=== PATIENT | male | born 1960 | race Caucasian/White ===

== ENCOUNTER → 2022-08-20 11:13 | Outpatient (BNVA) | payer OTHER, SELFPAY | PROVIDERS: PCP Registered Nurse; Visit Provider Registered Nurse | DX: R05.9 Cough, unspecified (principal) | CPT/HCPCS: 87400; 87426 ==

== ENCOUNTER → 2023-04-21 09:08 | Outpatient (BNVA) | payer OTHER, SELFPAY | PROVIDERS: PCP Registered Nurse; Visit Provider Registered Nurse | DX: Z00.00 Encounter for general adult medical examination without abnormal findings (principal); Z87.898 Personal history of other specified conditions; Z13.1 Encounter for screening for diabetes mellitus; Z12.5 Encounter for screening for malignant neoplasm of prostate; R09.81 Nasal congestion; I10 Essential (primary) hypertension; J30.9 Allergic rhinitis, unspecified; Z71.85 Encounter for immunization safety counseling; E66.9 Obesity, unspecified; Z68.32 Body mass index [BMI] 32.0-32.9, adult | CPT/HCPCS: 80053; 80061; 83036; 84443; 85025; G0103 ==

== ENCOUNTER 2023-11-10 14:58 | Outpatient (CLI) | payer OTHER, SELFPAY ==
--- NOTE | 2023-11-10 16:00 | CT_ITS ---
WS: [id number] CT ABDOMEN AND PELVIS WITH CONTRAST HISTORY: ventral hernia TECHNIQUE: Imaging performed of the abdomen and pelvis with IV contrast. Single phase imaging of the abdomen. Coronal and sagittal reformats are submitted. All CT scans at [facility] use at [address] one of these dose optimization techniques: automated exposure control; mA and/or kV adjustment per patient size (includes targeted exams where dose is matched to clinical indication); or iterative re construction. IV CONTRAST: Omnipaque 350; 100 mL IV. Oral contrast: Yes. DLP: 605.62 mGy.cm COMPARISON: None available. Lower thorax: Lung bases are clear. Heart is normal size. Small hiatal hernia. Distal esophagus conta ins a small amount of oral contrast. Liver/biliary system: Liver is normal size. There is several calcified granulomata throughout the elizabeth er. No mass identified. Normal portal vein. Gallbladder: Normal. No gallstones or wall thickening. No pericholecystic fluid. Pancreas: Normal size pancreas and pancreatic duct. No adjacent inflammation. Spleen: Normal size spleen. No mass or infarct. Adrenal glands: Normal. Right kidney: Normal. Left kidney: Normal. Aorta: Mild atherosclerosis with no aneurysm. Lymphadenopathy: None. Free fluid: None. GI tract: Marked distention of the stomach with food products and oral contrast. No small bowel obstr uction. There is moderate fecal retention and constipation with tortuosity of the colon. Normal appen pau. No colon obstruction. Abdominal wall: Thinning of the midline linea alba. There is a focal defect with an orifice of 2.0 cm . Herniated omental fat only extending through the orifice. Amount of herniated omental fat is 2.3 x 3.2 cm. This hernia is at the level of the umbilicus. No additional hernia identified. Pelvis: Prostate gland is moderately enlarged with central calcifications encroaching into the urinar y bladder. Prostate measures 5.3 x 5.1 x 6.9 cm. Bones: Mild straightening of the normal lumbar lordosis. No destructive bone lesion. IMPRESSION: 1. Ventral abdominal wall umbilical hernia. Hernia orifice measures 2.0 cm. Omental herniation only. Hernia does not contain GI tract. 2. Diffuse moderate constipation. 3. Normal appendix. 4. Small hiatal hernia.
[2023-11-10] MEDS: iohexol 350 mg/mL 500 mL Btl (per mL) PO (16:19)
[2023-11-10 16:27] LABS: Blood Urea Nitrogen 12 mg/dL (8-23); Glomerular Filtration Rate 85.5 mL/min (90-130)
[2023-11-10] MEDS: iohexol 350 mg/mL 500 mL Btl (per mL) IV (16:35)
== END 2023-11-10 14:59 | disposition home or self-care (01) ==
PROVIDERS: PCP Registered Nurse; Visit Provider Surgery
DX: K43.9 Ventral hernia without obstruction or gangrene (principal); K59.00 Constipation, unspecified; K44.9 Diaphragmatic hernia without obstruction or gangrene
CPT/HCPCS: 74177; 82565; 84520; Q9967

== ENCOUNTER 2023-12-05 07:13 | Day surgery (SDC) | payer OTHER, SELFPAY ==
[2023-12-05] VITALS (13 sets, daily range): BP systolic 139–171; BP diastolic 71–100; PULSE 78–102; RESP 10–21; TEMP 36.2–36.8; O2SAT 91–98; BMI 30.7
--- NOTE | 2023-12-05 06:24 | W.PM.OPSFHP ---
Same Day Surgery H&P Indication for Procedure/HPI DATE OF PROCEDURE: December 05, 2023 CHIEF COMPLAINT/INDICATIONFOR SURGICAL PROCEDURE: ventral hernia PREOP DIAGNOSIS: ventral hernia PLANNED PROCEDURE: Operation Date: 12/05/23 08:55 Proposed Procedures p 22064 lap ventral hernia repair with mesh K43.9(Not Applicable) - Gab Walls MD Medications/Allergies* Home Medications Medication Instructions Recorded Confirmed Type amlodipine 5 mg tablet 5 mg PO DAILY 12/02/23 12/02/23 History hydrochlorothiazide 25 mg tablet 25 mg PO DAILY 12/02/23 12/02/23 History ibuprofen 600 mg tablet 600 mg PO QID PRN Pain 12/02/23 12/02/23 History loratadine 10 mg tablet 10 mg PO DAILY 12/02/23 12/02/23 History ramipril 10 mg capsule 10 mg PO BID 12/02/23 12/02/23 History Allergies/Adverse Reactions Allergy/AdvReac Type Severity Reaction Status Date / Time No Known Allergies Allergy Verified 12/02/23 10:15 Pertinent History/Comorbid Conditions* Medical History (Updated 11/15/23 @ 08:53 by Gab Walls MD) Hypertension Sinus congestion Allergic rhinitis due to allergen Surgical History (Updated 04/21/23 @ 11:54 by EDDIE Swartz) History of hernia repair Family History (Updated 04/22/22 @ 09:50 by Leyla Pillai LPN) Diabetes Cancer Hypertension Social History Smoking and tobacco/nicotine status: never used tobacco/nicotine Alcohol intake: never Substance/Drug Use: never Adopted: No Caregiver/support person: No Lives independently: No Household members: spouse Marital status: service: Yes status: Retired branch: [employer] Assignments: Outside [facility] ([employer]) Known or Potential Exposure: None Current occupational status: employed Sexually active: Yes Do you think of yourself as: Straight/Heterosexual Current gender identity: Male Pertinent Exam Findings alert and clear to auscultation bilaterally Recommendations Surgery/Procedure today Coding Level of Care Code Acute Code for Chg Fwd
[2023-12-05] MEDS: sodium chloride 0.9% 1,000 ML 30 ML IV (08:11)
[2023-12-05 08:37] LABS: Anion Gap 12.3 (5-19); Blood Urea Nitrogen 15 mg/dL (8-23); Calcium 9.4 mg/dL (8.5-10.5); Carbon Dioxide 27 mmol/L (22-29); Chloride 103 mmol/L (98-107); Glucose 106 mg/dL (65-115); Osmolality Calculated 289 mOsm/kg (285-295); Potassium 3.3 mmol/L (3.5-5.1); Sodium 139 mmol/L (136-145)
[2023-12-05] MEDS: ceFAZolin 2,000 MG in sodium chloride 0.9% (plus) 50 ML 100 MG IV (09:21)
[2023-12-05] MEDS: BUPivacaine 0.25% INJ 10 mL INJECTION (10:01)
[2023-12-05] MEDS: lidocaine-epi 1% 20 mL INJ INJECTION (10:01)
--- NOTE | 2023-12-05 10:40 | P.ANESASSM_ITS ---
Pre-Anesthetic Assessment Height/Weight: Height 1.78 m Weight 97 kg Temp Pulse Resp BP Pulse Ox O2 Del Method 98.3 F 78 16 160/84 98 Room Air 12/05/23 07:34 12/05/23 07:34 12/05/23 07:34 12/05/23 07:34 12/05/23 07:34 12/05/23 07:36 Preop Diagnosis: ventral hernia Operation Date: 12/05/23 08:55 Proposed Procedures p 04858 lap ventral hernia repair with mesh K43.9(Not Applicable) - Gab Walls MD Familial anesthetic complications: none Was Beta Samir taken within 24 hours: N/A Was Clonidine taken within 24 hours: N/A Last intake: Intake Last Liquid Date 12/04/23 Last Liquid Time 20:00 Last Solid Date 12/04/23 Last Solid Time 16:30 Social No alcohol and No tobacco Exam alert, oriented x 3, clear to auscultation bilaterally and regular rate & rhythm Airway Submandibular: within normal limits Cervical ROM: within normal limits Mallampati: Class II Dentition: chipped CV/HEM Hypertension Anesthetic Plan ASA status: 2 Anesthesia: General Medications/Allergies Home Medications Medication Instructions Recorded Confirmed Last Taken Type diphenhydramine HCl 25 mg tablet 25 mg PO .hs PRN allergy symptoms 04/10/22 12/02/23 12/01/23 Rx (Allergy Relief (diphenhydramine)) #30 tabs fluticasone propionate 50 2 spray intranasal BID PRN nasal 04/21/23 12/02/23 1 Month Ago Rx mcg/actuation nasal congestion #16 grams ~11/01/23 spray,suspension amlodipine 5 mg tablet 5 mg PO DAILY 12/02/23 12/02/23 12/05/23 History hydrochlorothiazide 25 mg tablet 25 mg PO DAILY 12/02/23 12/02/23 12/05/23 History ibuprofen 600 mg tablet 600 mg PO QID PRN Pain 12/02/23 12/02/23 11/25/23 History loratadine 10 mg tablet 10 mg PO DAILY 12/02/23 12/02/23 11/30/23 History ramipril 10 mg capsule 10 mg PO BID 12/02/23 12/02/23 12/04/23 History Allergies Allergy/AdvReac Type Severity Reaction Status Date / Time No Known Allergies Allergy Verified 12/02/23 10:15 Current Medications Generic Name Dose Route Start Last Admin Trade Name Heide PRN Reason Stop Dose Admin Sodium Chloride 1,000 mls @ 30 mls/hr 12/05/23 07:30 12/05/23 10:11 Sodium Chloride 0.9% IV 12/06/23 07:29 Infused .Q24H ROMEO Infusion PFSH Anesthesia Medical History Hypertension Sinus congestion Allergic rhinitis due to allergen Surgical History History of hernia repair Family History Other Cancer Diabetes Hypertension Social History Smoking and tobacco/nicotine status: never used tobacco/nicotine Alcohol intake: never Substance/Drug Use: never Adopted: No Caregiver/support person: No Lives independently: No Household members: spouse Marital status: service: Yes status: Retired branch: [employer] Assignments: Outside [facility] ([employer]) Known or Potential Exposure: None Current occupational status: employed Sexually active: Yes Do you think of yourself as: Straight/Heterosexual Current gender identity: Male Data Anesthesia 12/05/23 08:00 BMP 12/05/23 08:00 Sodium 139 Potassium 3.3 L Chloride 103 Carbon Dioxide 27 BUN 15 Creatinine 0.8 Glucose 106 Calcium 9.4 Cardiac Studies: 2 No Data to Display
--- NOTE | 2023-12-05 11:07 | P.OP_ITS ---
Operative Report Date of procedure: December 05, 2023 Pre-op diagnosis: Ventral hernia Post-op diagnosis: Same Post-op findings: There was a 2.5 x 2.5 cm ventral hernia at the level of the epigastrium Procedure done: Laparoscopic intraperitoneal onlay mesh ventral hernia repair Implants: 6 inches BARD coated mesh Specimens removed/disposition: Hernia sac and contents. Surgeon: Gab Walls MD Manager Bar: [facility] Estimated blood loss: 5 Complications: none apparent Brief History: 62-year-old male with history of ventral hernia who presented for evaluation for repair. After discussion of all risk and benefits decided to proceed with laparoscopic repair with mesh. Procedure: Patient was brought into the OR, he was placed in the supine position. General anesthesia was given. The abdomen was prepped and draped in the usual sterile fashion. Timeout was conducted. The abdomen was accessed with Optiview 5 mm trocar on the left upper quadrant level of Cormier's point. Initial laparoscopy showed evidence of no visceral injury. Anterior visualization additional 12 mm trocar was placed in the left flank and a 5 mm trocar in the left lower quadrant. The anterior abdominal wall was evaluated, there was apparent that the patient had a ventral hernia at the level of the epigastrium, the hernia appeared to contain falciform and preperitoneal fat. With the use of blunt dissection and LigaSure the hernia contents were reduced to the abdominal cavity, a large amount of preperitoneal fat and a large portion of the falciform ligament was noted to be inside of the hernia. These were taken down and resected. The falciform ligament was then taken down to the area overlying the liver to allow for proper mesh positioning I then proceeded to take down the periumbilical fat at the median umbilical ligament to allow for a safe landing zone on the lower portion of the mesh. The defect was measured about 2.5 cm x 2.5 cm. The resected hernia sac and contents were placed in an Endo Catch bag and retrieved via the 12 mm port. A 6 inch coated Bard mesh was then inserted into the abdomen. The positioning system was then retrieved with a Brenton- Agus through the midline to ensure adequate positioning of the mesh. Once the mesh was completely opposed to the anterior abdominal wall it was noted to be in good position with no significant fatty tissue between the mesh and the abdominal wall. I then proceeded to tack the mesh in place in a double crown configuration. This was done with absorbable tacker's. The exoskeleton of the mesh was then removed and retrieved through the 12 mm port, this note was noted to be complete. Additional tacks were placed in the mesh to ensure adequate coverage. The 2 mm trocar was removed and the wound was closed with a Brenton- Agus suture passer under direct visualization. Hemostasis was verified. The left upper quadrant trocar was removed under direct visualization the left lower quadrant trocar was used to evacuate the pneumoperitoneum and subsequently removed. Will evacuating the pneumoperitoneum adequate positioning of the mesh was visualized until all the air was removed from the abdominal cavity. The wounds were closed in layers using #4-0 Monocryl for the skin, local anesthesia was injected in all port sites. Dermabond was applied. At the end of the procedure all counts were correct, the patient tolerated well the procedure and was transferred to the PACU in stable condition.
[2023-12-05] MEDS: fentaNYL 50 mcg/mL INJ 2mL IVP (11:43)
[2023-12-05] MEDS: ondansetron 2 mg/ML SDV 2 mL 4 MG IVP (12:54)
--- NOTE | 2023-12-05 12:54 | SUR.PHASEII ---
MEDICATED FOR NAUSEA. ABLE TO URINATE.
[2023-12-05] MEDS: oxyCODONE 5 mg IR Tab/Cap PO (13:05)
--- NOTE | 2023-12-05 16:14 | ANE.PACU2 ---
Inpatient post-anesthesia follow up: Airway intact: Yes Vital signs: Temperature 98.0 F Pulse Rate 88 Respiratory Rate 14 Blood Pressure 139/78 Pulse Oximetry 94 Oxygen Delivery Me thod Room Air Oxygen Flow Rate 6 Fraction of Inspir ed Oxygen Hydration adequate: Yes Nausea and vomiting: No Pain level: 3 Mental status: Baseline
== END 2023-12-05 14:03 | disposition home or self-care (01) ==
PROVIDERS: Anesthesiology; PCP Registered Nurse; Visit Provider Surgery
PROC: 0WQF4ZZ Repair Abdominal Wall, Percutaneous Endoscopic Approach (ICD-10-PCS; CPT 49591; principal; 2023-12-05 08:45)
DX: K43.9 Ventral hernia without obstruction or gangrene (principal); I10 Essential (primary) hypertension
CPT/HCPCS: 49591; 80048; 88302; J0690; J2250; J2405; J2704; J3010; J3490; J7030

== ENCOUNTER → 2024-04-19 09:37 | Outpatient (BNVA) | payer OTHER, SELFPAY | PROVIDERS: PCP Registered Nurse; Visit Provider Registered Nurse | DX: I10 Essential (primary) hypertension (principal); Z79.899 Other long term (current) drug therapy | CPT/HCPCS: 80048 ==

== ENCOUNTER → 2024-07-12 08:23 | Outpatient (BNVA) | payer OTHER, SELFPAY | PROVIDERS: PCP Registered Nurse; Visit Provider Registered Nurse | DX: I10 Essential (primary) hypertension (principal) | CPT/HCPCS: 80053; 80061; 83036; 85025 ==

== ENCOUNTER → 2024-12-25 10:17 | Outpatient (BNVA) | payer OTHER, SELFPAY | PROVIDERS: PCP Registered Nurse; Visit Provider Registered Nurse | DX: R68.89 Other general symptoms and signs (principal) | CPT/HCPCS: 87400 ==

== ENCOUNTER → 2025-07-11 09:16 | Outpatient (BNVA) | payer OTHER, SELFPAY | PROVIDERS: PCP Registered Nurse; Visit Provider Registered Nurse | DX: R60.0 Localized edema (principal); I10 Essential (primary) hypertension | CPT/HCPCS: 80053; 80061; 83880; 85025 ==